=== PATIENT | female | born 1990 | race Caucasian/White ===

== ENCOUNTER 2017-03-14 10:42 | Inpatient (IN) ==
[2017-03-14] MEDS ORDERED: PEPCID IV PRN ×2 (18:18→18:27)
[2017-03-14] MEDS ORDERED: ZOFRAN IV PRN (18:18)
[2017-03-14] MEDS ORDERED: PEPCID PO PRN (18:18)
[2017-03-14] MEDS ORDERED: BRETHINE SUBQ PRN (18:18)
[2017-03-14] MEDS ORDERED: AMBIEN PO PRN (18:18)
[2017-03-14] MEDS ORDERED: TYLENOL PO PRN (18:18)
[2017-03-14] MEDS ORDERED: STADOL IV PRN ×3 (18:18)
[2017-03-14] MEDS ORDERED: KEFZOL 1 GM/D5W 1 GM/50 ML IVPB IV PRN (18:18)
[2017-03-14] MEDS ORDERED: SODIUM CHLORIDE 0.9% INJ ONE (18:28)
[2017-03-14] MEDS ORDERED: REGLAN IV PRN (18:28)
[2017-03-14] MEDS ORDERED: LR 500 ML IV ONE (18:45)
[2017-03-14] MEDS ORDERED: CYTOTEC PO ONE (20:00)
[2017-03-14] MEDS: LR 1,000 ML IV ONE (20:40)
[2017-03-14 22:08] LABS: MANUAL DIFF NEEDED? NO
[2017-03-14 22:11] LABS: BASO% 0.2 % (0.0-0.8); EOS# 0.06 X1000 (0.0-0.7); EOS% 0.6 % (0.0-10.0); HEMATOCRIT 36.6 % (37.0-47.0); HEMOGLOBIN 12.7 g/dL (12.0-16.0); IMM GRAN# 0.04 X1000 (0.0-0.04); IMM GRAN% 0.4 % (0.0-0.5); LYMPH# 1.91 X1000 (1.2-3.4); LYMPH% 18.5 % (20.5-51.1); MCH 30.6 PG (27-31); MCHC 34.7 g/dL (33-37); MCV 88.2 FL (81-99); MONO# 0.61 X1000 (0.11-0.59); MONO% 5.9 % (1.7-9.3); MPV 11.2 FL (7.4-10.4); NEUT% 74.4 % (42.2-75.2); PLT 188 X1000 (130-400); RBC 4.15 XMIL (4.2-5.4)
[2017-03-14 22:47] LABS: URINE SOURCE VOIDED
[2017-03-14 22:54] LABS: BILIRUBIN URINE NEGATIVE (NEGATIVE); BLOOD URINE NEGATIVE (NEGATIVE); CLARITY CLEAR (CLEAR); COLOR YELLOW; GLUCOSE URINE NEGATIVE (NEGATIVE); LEUKOCYTES URINE TRACE (NEGATIVE); NITRITE URINE NEGATIVE (NEGATIVE); PH URINE 6.5; PROTEIN URINE NEGATIVE (NEGATIVE); SP GRAVITY URINE 1.015; UROBILINOGEN URINE NORMAL
[2017-03-14 23:05] LABS: UR AMPHETAMINES QUAL NONE DETECTED (NONE DETECT); UR BARBITUATES QUAL NONE DETECTED (NONE DETECT); UR BENZODIAZEPIN QUAL NONE DETECTED (NONE DETECT); UR CANNABINOIDS QUAL NONE DETECTED (NONE DETECT); UR COCAINE QUAL NONE DETECTED (NONE DETECT); UR MDMA QUAL NONE DETECTED (NONE DETECT); UR METHADONE QUAL NONE DETECTED (NONE DETECT); UR METHAMPHETAMINE QUAL NONE DETECTED (NONE DETECT); UR OPIATES QUAL NONE DETECTED (NONE DETECT); UR OXYCODONE QUAL NONE DETECTED (NONE DETECT); UR PCP QUAL NONE DETECTED (NONE DETECT); UR TCA QUAL NONE DETECTED (NONE DETECT)
[2017-03-15] MEDS ORDERED: CYTOTEC PO SCH (00:20)
[2017-03-15] MEDS ORDERED: FENTANYL-BUPIV-NS 2 MCG-0.1% 200 ML EPIDURAL SCH (07:00)
[2017-03-15] MEDS ORDERED: PITOCIN 30 UNITS/LR 30 UNITS/500 ML IV.SOLN IV SCH (07:00)
[2017-03-15] MEDS ORDERED: NAROPIN 0.2% INJ ONE (07:47)
[2017-03-15] MEDS: LR 1,000 ML IV ONE ×2 (08:25→09:30)
[2017-03-15] MEDS ORDERED: NAROPIN 0.2% ONE (16:17)
[2017-03-15] MEDS ORDERED: XYLOCAINE-MPF 1% INJ ONE (19:05)
[2017-03-15] MEDS ORDERED: MINERAL OIL PO ONE (19:06)
[2017-03-15] MEDS ORDERED: XYLOCAINE-MPF 2% ONE (19:14)
[2017-03-15 20:43] LABS: BE -6.8 mmoll (-3.0-3.0); METHB 1.1 % (0.0-1.5); O2(CT) 8.7 mL/dL (15.0-23.0); SAMPLE BLOOD; SAO2 36.4 % (95.0-100.0); THB 17.6 g/dL (11.5-17.4); pH(98.6) 7.21 (7.35-7.45)
[2017-03-15 20:50] LABS: PCO2(98.6) 55 mmHg (35-45); PO2(98.6) 19 mmHg (60-100)
[2017-03-15 20:51] LABS: BLOOD TYPE CORD BLOOD
[2017-03-15 20:52] LABS: ALLEN TEST NO; DRAW SITE UMBILICAL; MODALITY ROOM AIR
[2017-03-15] MEDS ORDERED: LR 1,000 ML ONE (21:20)
[2017-03-15] MEDS ORDERED: PITOCIN IM PRN (21:37)
[2017-03-15] MEDS ORDERED: M-M-R II VACCINE SUBQ ONE (21:37)
[2017-03-15] MEDS ORDERED: AMBIEN PO PRN (21:37)
[2017-03-15] MEDS ORDERED: CYTOTEC PO PRN (21:37)
[2017-03-15] MEDS ORDERED: PITOCIN 20 UNITS/LR 20 UNITS/1,000 ML IV.SOLN IV SCH (21:37)
[2017-03-15] MEDS ORDERED: HYDROXYZINE IM PRN (21:37)
[2017-03-15] MEDS ORDERED: BENADRYL IV PRN (21:37)
[2017-03-15] MEDS ORDERED: HYDROXYZINE PO PRN (21:37)
[2017-03-15] MEDS ORDERED: MINERAL OIL PO PRN (21:37)
[2017-03-15] MEDS ORDERED: PITOCIN 30 UNITS/LR 30 UNITS/500 ML IV.SOLN IV ONE (21:37)
[2017-03-15] MEDS ORDERED: XYLOCAINE-MPF 1% INJ PRN (21:37)
[2017-03-15] MEDS ORDERED: BENADRYL PO PRN (21:37)
[2017-03-15] MEDS ORDERED: BOOSTRIX VACCINE IM ONE (21:37)
[2017-03-15] MEDS: NORCO-5 PO PRN (22:57)
[2017-03-15] MEDS: PERI MEDS (DERMOPLAST/NUPERCAINAL/TUCKS) MISC PRN (22:57)
[2017-03-15] MEDS: MOTRIN PO PRN (22:57)
[2017-03-15] MEDS: PERICOLACE PO SCH (23:36)
[2017-03-16] MEDS: PERI MEDS (DERMOPLAST/NUPERCAINAL/TUCKS) MISC PRN (01:17)
[2017-03-16] MEDS: MOTRIN PO PRN ×2 (06:40→19:28)
[2017-03-16 06:42] LABS: EOS# 0.01 X1000 (0.0-0.7); HEMATOCRIT 27.3 % (37.0-47.0); HEMOGLOBIN 9.2 g/dL (12.0-16.0); IMM GRAN# 0.06 X1000 (0.0-0.04); IMM GRAN% 0.3 % (0.0-0.5); LYMPH# 1.35 X1000 (1.2-3.4); LYMPH% 6.7 % (20.5-51.1); MANUAL DIFF NEEDED? YES; MCH 29.9 PG (27-31); MCHC 33.7 g/dL (33-37); MCV 88.6 FL (81-99); MONO# 1.48 X1000 (0.11-0.59); MONO% 7.3 % (1.7-9.3); MPV 11.3 FL (7.4-10.4); NEUT% 85.7 % (42.2-75.2); PLT 162 X1000 (130-400); RBC 3.08 XMIL (4.2-5.4)
[2017-03-16 07:55] LABS: BANDS 2 % (0-1); LYMPHS 7 % (21-51); MONO 2 % (1-9)
[2017-03-16 07:56] LABS: HYPOCHROM OCCASIONAL
[2017-03-16] MEDS: PRECARE PO SCH (09:49)
[2017-03-16] MEDS: NORCO-5 PO PRN (09:49)
[2017-03-16] MEDS: ZOLOFT PO SCH (09:50)
[2017-03-16] MEDS: SUBOXONE 8 MG/2 MG SL SCH (09:51)
--- NOTE | 2017-03-16 10:36 | OPERATIVE NOTE ---
PROCEDURE DATE: 03/15/2017 PREDELIVERY DIAGNOSES: 1. Intrauterine at 41 weeks. 2. Late care. 3. History of substance abuse, on Subutex maintenance. 4. Depression. 5. Tobacco use. 6. Rubella nonimmune. POSTDELIVERY DIAGNOSES: 1. Intrauterine at 41 weeks. 2. Late care. 3. History of substance abuse, on Subutex maintenance. 4. Depression. 5. Tobacco use. 6. Rubella nonimmune. 7. Nuchal cord with compression and shoulder dystocia. 8. Vacuum-assisted vaginal delivery. PHYSICIAN: Mando Emmanuel MD. ANESTHESIA: Epidural with Dr. Mckinney. FINDINGS: Viable male infant, 7 pounds 8 ounces, 3, 6,, 10 Apgars. Cord pH was 7.21. Three vessel cord. Placenta was spontaneous, intact. There was a second-degree midline laceration with routine repair. ESTIMATED BLOOD LOSS: 100 mL. DESCRIPTION OF PROCEDURE: Ms. Merida is a 27-year-old 1 who had an estimated date of delivery of 03/09, who presented last night for Cytotec induction and then she was started on Pitocin this morning, artificially ruptured. She made steady progress throughout the day without distress or dystocia. Became complete at approximately 7:15 to 7:30. Began pushing and then started having deep long variables. So after approximately 10 minutes, vacuum was applied and with the next 4 pushes gentle traction resulted in delivery of the 's head, occiput anterior. Once head delivered shoulders had to be delivered. So, by placing skip operator's hand between the shoulder and the pubic bone and providing a wedge to slide the shoulder under, was delivered, placed on mother's abdomen, cord doubly clamped and cut, and care of infant taken over by nursery personnel. A section of the cord is clamped off for the cord pH and then cord blood is obtained. Then attention was turned to the perineum and vagina where a second-degree midline laceration was found. It was repaired in usual fashion with 3-0 Polysorb. Once this was done, gentle traction resulted in delivery of the placenta. It was inspected and found to be intact. So, at this point, there was no clots or foreign material in the vagina. Rectal exam was normal. Good sphincter tone. No sutures felt in the rectum. Count was correct and estimated blood loss 100 mL. cc: Mando Emmanuel MD
[2017-03-16] MEDS: NORCO-10 PO PRN ×2 (14:02→19:28)
[2017-03-16] MEDS ORDERED: PEPCID PO ONE (15:15)
[2017-03-16] MEDS: PERICOLACE PO SCH (20:16)
[2017-03-17] MEDS: NORCO-10 PO PRN ×3 (00:18→07:32)
[2017-03-17] MEDS: MOTRIN PO PRN (03:57)
[2017-03-17 08:14] VITALS: BP 133/81
[2017-03-17] MEDS: ZOLOFT PO SCH (09:04)
[2017-03-17] MEDS: PRECARE PO SCH (09:04)
[2017-03-17] MEDS: SUBOXONE 8 MG/2 MG SL SCH (09:06)
== END 2017-03-17 10:20 | disposition home or self-care (01) ==
LOC: P.LD 18:11
PROVIDERS: ADMIT Obstetrics & Gynecology; ATTEND Obstetrics & Gynecology

== ENCOUNTER 2018-10-15 19:37 | Inpatient (IN) ==
[2018-10-15 21:15] LABS: BASO# 0.03 X1000 (0.0-0.2); BASO% 0.3 % (0.0-0.8); EOS# 0.01 X1000 (0.0-0.7); EOS% 0.1 % (0.0-10.0); HEMATOCRIT 37.8 % (37.0-47.0); HEMOGLOBIN 12.7 g/dL (12.0-16.0); LYMPH# 2.22 X1000 (1.2-3.4); LYMPH% 21.1 % (20.5-51.1); MCH 27.1 PG (27-31); MCHC 33.6 g/dL (33-37); MCV 80.6 FL (81-99); MONO# 0.79 X1000 (0.11-0.59); MONO% 7.5 % (1.7-9.3); MPV 9.2 FL (7.4-10.4); NEUT# 7.48 X1000 (1.4-6.5); PLT 339 X1000 (130-400); RBC 4.69 XMIL (4.2-5.4); RDW 14.7 % (11.5-14.5); WBC 10.53 X1000 (4.8-10.8)
[2018-10-15 21:30] LABS: AGAP 13; ALB/GLOB RATIO 1.5; ALBUMIN 4.8 g/dL (3.5-5.0); ALKALINE PHOSPHATASE 92 U/L (32-104); BUN 21 mg/dL (8-22); CALCIUM 9.6 mg/dL (8.8-10.2); CHLORIDE 102 mmol/L (98-107); COSMO 279; CREATININE 0.7 mg/dL (0.5-0.9); ESTIMATED GFR > 60; GLUCOSE 106 mg/dL (70-104); GOT 10 U/L (10-30); GPT 7 U/L (10-36); POTASSIUM 3.4 mmol/L (3.5-5.1); SODIUM 138 mmol/L (136-145); TCO2 23 mmol/L (25-35); TOTAL BILIRUBIN 0.26 mg/dL (0.20-1.00); TOTAL PROTEIN 8.1 g/dL (6.3-8.3)
[2018-10-15 22:18] LABS: URINE SOURCE CLEAN CATCH
[2018-10-15 22:38] LABS: BILIRUBIN URINE NEGATIVE (NEGATIVE); BLOOD URINE SMALL (NEGATIVE); COLOR YELLOW; GLUCOSE URINE NEGATIVE (NEGATIVE); KETONE URINE NEGATIVE (NEGATIVE); LEUKOCYTES URINE SMALL (NEGATIVE); NITRITE URINE NEGATIVE (NEGATIVE); PH URINE 6.5; PROTEIN URINE TRACE mg/dL (NEGATIVE); SP GRAVITY URINE 1.031; TURBIDITY URINE CLEAR (CLEAR); UR EPITHELIAL CELLS <10 /HPF (<10); URINE BACTERIA NEGATIVE /HPF; URINE WBC <10 /HPF (<10); UROBILINOGEN URINE 2 mg/dL (NORMAL)
[2018-10-15 22:44] LABS: UR AMPHETAMINES QUAL NONE DETECTED (NONE DETECT); UR BARBITUATES QUAL NONE DETECTED (NONE DETECT); UR BENZODIAZEPIN QUAL NONE DETECTED (NONE DETECT); UR CANNABINOIDS QUAL NONE DETECTED (NONE DETECT); UR COCAINE QUAL NONE DETECTED (NONE DETECT); UR METHADONE QUAL PRESUMPTIVE POSITIVE (NONE DETECT); UR OPIATES QUAL NONE DETECTED (NONE DETECT); UR OXYCODONE QUAL NONE DETECTED (NONE DETECT); UR PCP QUAL NONE DETECTED (NONE DETECT)
--- NOTE | 2018-10-16 01:17 | PROVIDER DOCUMENTATION ---
This chart was entered by Mirella Alcala Scribe, acting as scribe for Nicholas Townsend MD. HPI-Psychological Disorder - General Chief Complaint: Req. Detox Stated Complaint: PSYCH Time Seen by Provider: 10/15/18 20:22 Source: patient Allergies/Adverse Reactions: Patient Allergies Allergy/AdvReac Type Severity Reaction Status Date / Time No Known Allergies Allergy Verified 08/17/18 23:19 Home Medications: Home Medication List Medication Instructions Recorded Confirmed Last Taken Type Benzocaine/Menth/Cetylpyrd Jolene 16 each .SEE ORDER PRN PRN #1 box 08/17/18 Unknown Rx [Cepacol Sore Throat Lozenge] Alprazolam 1 mg PO TID PRN #45 tab 09/10/18 Unknown Rx Citalopram Hydrobromide 40 mg PO DAILY #30 tab 09/10/18 Unknown Rx [Citalopram HBr] Gabapentin [Neurontin] 400 mg PO TID #90 cap 09/10/18 Unknown Rx Hydroxyzine [Atarax] 50 mg PO TID PRN PRN #90 tab 09/10/18 Unknown Rx Nicotine Patch [Nicoderm Patch] 21 mg TD DAILY #30 patch.td24 09/10/18 Unknown Rx Quetiapine [Seroquel] 100 mg PO QHS #30 tab 09/10/18 Unknown Rx Cephalexin [Keflex] 500 mg PO BID #14 cap 10/11/18 Unknown Rx - History of Present Illness-Psych Nature of Presenting Problem: 28yof presents to ED c/o of ear hurting and wants to detox even though pt denies drug use today. Pt is seen at Methadone clinic in [place] but wasn't able to go the last 2 days because car wouldn't start. Pt has hx of Major Depressive Disorder,recurrent and severe without pschotic features, ZAINA, Non conformity in taking meds, chronic, Poly substance abuse. Review of Systems - Adult - REVIEW OF SYSTEMS - ADULT ROS:: unobtainable per condition Constitutional: reports: no symptoms reported Eyes: reports: no symptoms reported Ears, Nose, Mouth & Throat: reports: no symptoms reported Cardiovascular: reports: no symptoms reported Respiratory: reports: no symptoms reported Gastrointestinal: reports: no symptoms reported Genitourinary: reports: no symptoms reported Musculoskeletal: reports: no symptoms reported Integumentary: reports: no symptoms reported Neurological: reports: no symptoms reported Psychiatric: reports: no symptoms reported Endocrine: reports: no symptoms reported Hematologic/Lymphatic: reports: no symptoms reported Allergic/Immunologic: reports: no symptoms reported All Other Systems: Reviewed and Negative Past History - Adult - PAST MEDICAL HISTORY-ADULT Review of Records: reports: Old Records Reviewed, Nursing Assessment Review, Medications Reviewed Major Childhood Illnesses: reports: denies history Cardiovascular: reports: denies history Respiratory: reports: denies history Gastrointestinal: reports: denies history Obstetrical/Gynecological: reports: denies history Genitourinary: reports: denies history Musculoskeletal: reports: denies history Neurological: reports: denies history Endocrine/Immune: reports: denies history Other Conditions: reports: denies history - PRIOR SURGERIES/PROCEDURES Surgical/Procedure History: reports: - IMMUNIZATION STATUS Childhood Immunizations: See Nurse Assessment Flu Vaccine: See Nurse Assessment - FAMILY HISTORY Family History: reviewed, not pertinent Physical Exam-Psych Focus - Physical Exam-Psych Initial Vital Signs Reviewed: Yes Appearance: appropriate appearance, neat, no apparent distress. 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 negative: normal thought pattern HENMT: normocephalic/atraumatic, moist mucous membranes, normal ENT inspection Neck: non-tender, full range of motion, supple Respiratory: chest non-tender, lungs clear. negative: crackles, rales, rhonchi Cardiovascular: normal peripheral pulses, regular rate, rhythm, no edema. negative: bradycardia, tachycardia Abdominal Exam: normal bowel sounds, non tender, soft. negative: guarding, rigid, rebound, tenderness Lymphatic: no adenopathy. negative: axilla node tender Back Exam: normal inspection, no CVA tenderness, no vertebral tenderness. negative: ecchymosis, muscle spasm Extremity: normal range of motion, non-tender, normal gait, normal inspection. negative: deformity Integumentary: normal color, normal turgor, warm/dry Progress - PLAN OF CARE/RESULTS Progress/Plan/Lab Results: Vital Signs - 8 hr 10/15/18 19:45 Temperature 97.9 F Pulse Rate 62 Respiratory Rate 16 Blood Pressure 130/86 O2 Sat by Pulse Oximetry 100 Laboratory Results - last 24 hr 10/15/18 10/15/18 10/15/18 21:03 21:03 21:03 WBC 10.53 RBC 4.69 Hgb 12.7 Hct 37.8 MCV 80.6 L MCH 27.1 MCHC 33.6 RDW Std Deviation 14.7 H Plt Count 339 MPV 9.2 Neut % (Auto) 71.0 Lymph % (Auto) 21.1 Gray % (Auto) 7.5 Eos % (Auto) 0.1 Baso % (Auto) 0.3 Neut # (Auto) 7.48 H Lymph # (Auto) 2.22 Gray # (Auto) 0.79 H Eos # (Auto) 0.01 Baso # (Auto) 0.03 Sodium 138 Potassium 3.4 L Chloride 102 Carbon Dioxide 23 L Anion Gap 13 BUN 21 Creatinine 0.7 Estimated GFR/1.73 m2 > 60 BUN/Creatinine Ratio 30 Glucose 106 H Calculated Osmolality 279 Calcium 9.6 Total Bilirubin 0.26 AST 10 ALT 7 L Alkaline Phosphatase 92 Total Protein 8.1 Albumin 4.8 Globulin 3.3 Albumin/Globulin Ratio 1.5 Urine Source Urine Color Urine Turbidity Urine pH Ur Specific [place] Urine Protein Ur Glucose (Stick) Ur Ketones (Stick) Urine Blood Urine Nitrite Urine Bilirubin Urobilinogen Dipstick Urine Leukocytes Urine WBC (Auto) Urine RBC (Auto) U Epithel Cells (Auto) Urine Bacteria (Auto) Urine Test Urine Opiates Screen Ur Oxycodone Screen Ur Methadone, Qual Ur Barbiturates Screen Ur Phencyclidine Scrn Ur Amphetamines Screen U Benzodiazepines Scrn Urine Cocaine Screen U Cannabinoids Screen Plasma/Serum Ethyl Alc 10/15/18 10/15/18 10/15/18 22:10 22:10 22:10 WBC RBC Hgb Hct MCV MCH MCHC RDW Std Deviation Plt Count MPV Neut % (Auto) Lymph % (Auto) Gray % (Auto) Eos % (Auto) Baso % (Auto) Neut # (Auto) Lymph # (Auto) Gray # (Auto) Eos # (Auto) Baso # (Auto) Sodium Potassium Chloride Carbon Dioxide Anion Gap BUN Creatinine Estimated GFR/1.73 m2 BUN/Creatinine Ratio Glucose Calculated Osmolality Calcium Total Bilirubin AST ALT Alkaline Phosphatase Total Protein Albumin Globulin Albumin/Globulin Ratio Urine Source CLEAN CATCH Urine Color YELLOW Urine Turbidity CLEAR Urine pH 6.5 Ur Specific [place] 1.031 Urine Protein TRACE A Ur Glucose (Stick) NEGATIVE Ur Ketones (Stick) NEGATIVE Urine Blood SMALL A Urine Nitrite NEGATIVE Urine Bilirubin NEGATIVE Urobilinogen Dipstick 2 A Urine Leukocytes SMALL A Urine WBC (Auto) <10 Urine RBC (Auto) 10-20 A U Epithel Cells (Auto) <10 Urine Bacteria (Auto) NEGATIVE Urine Test NEGATIVE Urine Opiates Screen NONE DETECTED Ur Oxycodone Screen NONE DETECTED Ur Methadone, Qual PRESUMPTIVE POSITIVE A Ur Barbiturates Screen NONE DETECTED Ur Phencyclidine Scrn NONE DETECTED Ur Amphetamines Screen NONE DETECTED U Benzodiazepines Scrn NONE DETECTED Urine Cocaine Screen NONE DETECTED U Cannabinoids Screen NONE DETECTED Plasma/Serum Ethyl Alc Orders Category Date Time Status ALCOHOL BLOOD Stat Lab 10/15/18 21:03 Completed CBC WITH ELECTRONIC DIFF [HEME] Stat Lab 10/15/18 21:03 Completed COMPREHENSIVE METABOLIC PANEL [CHEM] Stat Lab 10/15/18 21:03 Completed TEST-URINE [PREG] Stat Lab 10/15/18 22:10 Completed UA [URINALYSIS] [URINALYSIS] Stat Lab 10/15/18 22:10 Completed URINE DRUG SCREEN Stat Lab 10/15/18 22:10 Completed Result Diagrams: 10/15/18 21:03 10/15/18 21:03 - REASSESSMENT Reassessment #1 Time Reassessed: 01:11 Status: unchanged (Discussed with psych screener who is convinced pt has over dosed on methadone and request med admission before transfer. Pupils are 4 mm and reactive bilaterally) - CONSULTS/PCP/HOSPITALIST Notification #1 *Consult/PCP/Hospitalist*: Dr Chong Time Discussed: 01:09 Consult Disposition: Admit Departure - Departure Date of Disposition Decision: 10/16/18 Time of Disposition Decision: 01:15 DIAGNOSIS: Hx of substance abuse Altered mental status, unspecified Qualifiers: Altered mental status type: somnolence Qualified Code(s): R40.0 - Somnolence Disposition: ADMITTED INPATIENT 09 Certified Medical Emergency: Emergent Condition: Stable Referrals and Follow-Ups: None,PCP [NON-STAFF PROVIDER] - - Critical Care Note This patient required my direct & personal management of CC.: No Attestation - Physician/ VANI Attestation Patient care was provided by Advanced Practice Provider:: No The physician spent face to face time with patient:: Yes Advanced Practice Provider documentation review:: Supervising physician onsite and consulted in the evaluation and care of this patient. The physician did have a face to face encounter with the patient. This chart was documented by the indicated scribe, (Mirella Alcala, Aiden) and accurately reflects the services I performed and decisions made by me, Nicholas Townsend MD, as attested by the provider's signature.
--- NOTE | 2018-10-16 03:05 | HISTORY AND PHYSICAL ---
PRIMARY CARE PHYSICIAN: None. CHIEF COMPLAINT: Altered mental status. HISTORY OF PRESENT ILLNESS: This is a 28-year-old female with a history of depression and IV drug use, on methadone, who was just discharged from [facility] after a psychiatric evaluation for depression. Stated that she did not feel well when she went home. She was brought back to the emergency department. She was moderately disoriented and altered. She had a repeat psychiatric evaluation and apparently, it was the impression that her symptoms were probably secondary to the methadone that she was on. Due to her presenting symptoms, and patient being disoriented and altered, it was thought that we would place her in for observation for further evaluation and management. At the time of my examination, she had denied any headache, fever, chills, chest pain, shortness of breath, hemoptysis, or weight changes. She stated that she did not feel well. PAST MEDICAL HISTORY: Depression. PAST SURGICAL HISTORY: None. ALLERGIES: No known drug allergies. CURRENT MEDICATIONS: Include methadone, Xanax 1 mg p.o. t.i.d., Celexa 40 mg p.o. daily, gabapentin 400 mg p.o. t.i.d., Atarax 50 mg p.o. t.i.d., nicotine patch 21 mg daily, Seroquel 100 mg p.o. at bedtime. SOCIAL HISTORY: Ten pack year history of smoking. Admits to social alcohol use. History of IV drug use with heroin. FAMILY HISTORY: No history of coronary artery disease. REVIEW OF SYSTEMS: Fourteen point review of systems is as listed in the HPI. Other systems negative. PHYSICAL EXAMINATION: GENERAL: Cooperative, friendly female. She is resting comfortably. However, she is moderately disoriented and confused. VITAL SIGNS: Temperature 97.9 degrees, pulse 62, respirations 16, blood pressure 130/85. HEENT: Atraumatic, normocephalic. Extraocular movements intact. PERRLA. NECK: Supple. CHEST: Clear to auscultation. CARDIOVASCULAR: Regular rate and rhythm. ABDOMEN: Soft. Positive bowel sounds. EXTREMITIES: No edema. NEUROLOGIC: She is awake, alert. She is not oriented. : No bladder distention. SKIN: Warm. PSYCHIATRIC: Has a flat affect. LABORATORIES AND STUDIES: WBCs 10.53, hemoglobin 12.7, hematocrit 37.8, platelets 339,000. Sodium 138, potassium 3.4, chloride 102, CO2 is 23, BUN is 21, creatinine is 0.7, glucose is 106. Urine is negative for nitrite. Her toxicology screen is positive for methadone. ASSESSMENT: A 28-year-old female with a history of depression and intravenous drug use, currently on methadone, who had presented to the emergency department due to the patient being altered and confused. She was evaluated in the emergency department. She had a psychiatric evaluation. It was impression that her symptoms were secondary to methadone. Due to her presenting symptoms, we will place her for observation for further evaluation and management. 1. Altered mental status/disorientation. 2. Depression. 3. Intravenous heroin use, currently on methadone. 4. Tobacco abuse. PLAN: 1. We will admit the patient to the medical floor with telemetry. 2. Continue with supportive treatment. 3. We will monitor neurological status closely. 4. We will restart her home medications. 5. We will put the patient on DVT prophylaxis. 6. We will continue to follow and reassess, and make further recommendations based on the patient's clinical course. cc: Scott Vásquez MD
--- NOTE | 2018-10-16 10:12 | PROGRESS NOTE ---
DATE: 10/16/2018 SUBJECTIVE: Ms. Merida presented early this morning with altered mental status. A 28 year old, who has a history of depression and IV drug use on methadone was discharged from [facility] after psychiatric evaluation for depression. Stated that she did not feel well when she went home. She was brought back to the emergency room. She was altered mental status. Repeat psychiatric evaluation apparently impression were that the symptoms are probably secondary to methadone she was on. Due to her presenting symptoms, the patient is noted to be disoriented and altered. Placed her in observation for further evaluation. She has a history of depression. OBJECTIVE: General: Today on exam, she did not know where she was or what day or year it was. She was awake. She did remember when she came in the hospital; does not remember much of yesterday. Vital Signs: Temperature 97.9 degrees, pulse 55, respirations 16, blood pressure 114/66. Eyes: Pupils are equal. Lungs: Clear in all lung mathur. Cardiovascular exam: Regular rhythm and rate without murmur or S3. Abdomen: Soft. Skin: Warm and dry. LABS: White count is 10,530, hematocrit 37, platelet count is 339,000. Sodium 138, potassium 3.4, chloride 102. BUN 21, creatinine 0.7. Urinalysis presumptive was positive for methadone. HOME MEDICATIONS: She is on alprazolam 1 mg t.i.d. p.r.n. and she is on citalopram 40 mg a day, Neurontin 400 mg p.o. t.i.d. She is on Atarax 50 mg p.o. t.i.d. p.r.n., a nicotine patch, Seroquel 100 mg at bedtime and apparently is taking methadone. She is not on any medications right now. DISPOSITION: I think she is hungry. We will get her a regular diet and see how we do. cc: Lan Hameed MD
--- NOTE | 2018-10-16 12:51 | CONSULTATION ---
DATE OF CONSULTATION: 10/16/2018 HISTORY OF PRESENT ILLNESS: Ms. Merida reportedly presented with altered mental state. She has recent hospital discharge from [facility] after psychiatry evaluation for depression. I have reviewed the admission notes for current hospitalization. She was voluntarily misleading and not forthcoming with me. She sometimes shrugged, smiled, held her palms up without responding verbally. When I encouraged her to provide verbal response, she sometimes did so. She provided history that I have not documented and do not know to be true or not true. She told me that she does not know her medicines, does not know if she takes her medicines correctly, does not know if she recently ran out of medicine. I pointed out that alprazolam/Xanax was listed as a discharge medicine from [facility] a month ago. She told me she recognized the name Xanax and believes that she has taken it, but not sure if she has taken it recently. Her urine drug screen was negative for benzodiazepine this time. She initially told me she had been using heroin, but later said she had not used heroin in "a long time," and she would not specify how much time was "a long time." Her urine drug screen was positive for methadone, but negative for opiates. Other lab work is unremarkable. She has been afebrile. We do not have brain imaging reported. On exam, she is awake, alert, attentive, able to communicate, and there was no apparent language dysfunction or cognitive impairment. Speech is not dysarthric. Head and neck are unremarkable. There is no meningismus. Visual mathur are full tested grossly by confrontational finger counting. Extraocular movements are full. Pupils are at medium, about 4 mm and both react to light. Facial motility is symmetric. Tongue is midline. Shoulder shrug is equal. Strength is normal in the arms and legs. She did well on [id number] testing bilaterally. I did not test her gait. She reports symmetric pinprick appreciation on brief testing over the limbs. Reflexes are 1+ at the ankles and 1+ at the wrists symmetrically. IMPRESSION: No neurologic findings. She may have had an altered mental state on presentation. That would seem most likely related to medications/substance, ingestion/ intoxication/withdrawal. At this point, she seems to be recovered. I do not have any urgent suggestion. I encouraged her to try to take her medicines as directed, and to avoid illicit drug use. Thanks for asking Neurology to see Ms. Merida. cc: MD MELODY Garza III
[2018-10-17 06:42] LABS: BASO# 0.01 X1000 (0.0-0.2); BASO% 0.2 % (0.0-0.8); EOS# 0.02 X1000 (0.0-0.7); EOS% 0.3 % (0.0-10.0); HEMOGLOBIN 12.5 g/dL (12.0-16.0); LYMPH# 1.92 X1000 (1.2-3.4); MCH 26.9 PG (27-31); MCHC 32.9 g/dL (33-37); MCV 81.9 FL (81-99); MONO# 0.48 X1000 (0.11-0.59); MONO% 7.5 % (1.7-9.3); MPV 9.2 FL (7.4-10.4); NEUT# 3.97 X1000 (1.4-6.5); PLT 327 X1000 (130-400); RBC 4.64 XMIL (4.2-5.4); RDW 14.8 % (11.5-14.5)
[2018-10-17 07:15] LABS: AGAP 11; BUN 18 mg/dL (8-22); CALCIUM 9.6 mg/dL (8.8-10.2); CHLORIDE 106 mmol/L (98-107); COSMO 286; CREATININE 0.7 mg/dL (0.5-0.9); ESTIMATED GFR > 60; GLUCOSE 111 mg/dL (70-104); POTASSIUM 3.5 mmol/L (3.5-5.1); SODIUM 142 mmol/L (136-145); TCO2 25 mmol/L (25-35)
[2018-10-17 08:26] VITALS: BP 128/78
--- NOTE | 2018-10-17 09:18 | DISCHARGE SUMMARY ---
ADMISSION DATE: 10/16/2018 DISCHARGE DATE: 10/17/2018 This is a 28-year-old. She has no primary care physician. I think she has a family physician named Alexandre Taylor. This is a 28-year-old with a history of depression, IV drug use, and methadone. She was recently discharge from [facility] for psychiatric evaluation of depression. She stated that she did not feel well. She went home and she was brought back to the emergency department disoriented and did not know where she was, the time or place. She had repeat psychiatric evaluation. Impression was that her symptoms were probably secondary to methadone. She wanted us to put her in the hospital. She remained pretty lethargic for the first 12 hours and then woke up. She was disoriented on the morning of 10/16/2018, however, she was able to get up out of bed and was walking the halls. She was eating okay and she wanted to go home. On the morning of 10/17/2018, she was oriented to place, person, and time. She wanted to go home and she was requesting some Xanax. I told her we had held her Xanax and she would need to get her methadone from the clinic as we would not supply her with any benzodiazepines. I strongly discouraged her current drug regimen, which was methadone plus Xanax. She is taking 1 mg t.i.d. She is on gabapentin 400 mg t.i.d. Apparently she is getting Atarax 50 mg t.i.d. and a nicotine patch. She is on Seroquel 100 mg at bedtime. She is insistent on going home and we will let her go home. I recommend she pursue outpatient rehab and strongly discourage continuing the methadone plus the benzodiazepines. Note, her urine drug screen was positive for methadone. It was negative for opiates, oxycodone, barbiturates, phencyclidine, amphetamines, and benzodiazepines were negative. When she came in, urine cocaine screen was negative, cannabinoids negative. Urine was unremarkable. So, we will discharge her home. cc: Lan Hameed MD
== END 2018-10-17 10:36 | disposition home or self-care (01) | DRG 948 ==
LOC: ED 19:37 → 4N 19:37 → OBSVTOIN 10-16 04:55 → SUATTDRO 10-16 04:55
PROVIDERS: ATTEND Emergency Medicine
CPT/HCPCS: 51701; 80048; 80053; 80101; 80301; 80307; 80320; 80324; 80345; 80346; 80353; 80358; 80361; 80365; 81001; 81025; 82055; 83992; 85025; 99285; G0431; G0434; G0479; G0480; G6040; P9612